=== PATIENT | female | born 2000 | race Caucasian/White ===

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

== ENCOUNTER 2024-11-01 06:03 | Day surgery (SDC) | payer BC ==
[2024-11-01] MEDS ORDERED: fentaNYL 100 MCG/2 ML SDV IV ONE (06:10)
[2024-11-01] MEDS ORDERED: fentaNYL 100 MCG/2 ML SDV ONE (06:10)
[2024-11-01] MEDS ORDERED: Midazolam 1 MG/ML 2 ML SDV ONE (06:10)
[2024-11-01] MEDS ORDERED: Midazolam 1 MG/ML 2 ML SDV IV ONE (06:10)
[2024-11-01] MEDS: Sodium Chloride 0.9% 500 ML IV SCH (06:31)
[2024-11-01] MEDS: fentaNYL 100 MCG/2 ML SDV IV ONE ×2 (07:02)
[2024-11-01] MEDS: Midazolam 1 MG/ML 2 ML SDV IV ONE ×2 (07:03)
== END 2024-11-01 08:49 | disposition home or self-care (01) ==
LOC: DL.ENDO 06:03
PROVIDERS: ATTEND Internal Medicine Gastroenterology
DX: K29.50 Unspecified chronic gastritis without bleeding (principal); K20.0 Eosinophilic esophagitis; R13.10 Dysphagia, unspecified
CPT/HCPCS: 43239; 81025; J2250; J3010; J7040